=== PATIENT | female | born 1975 | race American Indian/Alaskan Native ===

== ENCOUNTER → 2025-02-19 | Outpatient (CLI) | payer OTHER, SELFPAY ==
--- NOTE | 2025-02-19 08:30 | XR_ITS ---
Examination: Breast ultrasound complete, bilateral Date and time of exam: February 19, 2025 1011 hours INDICATIONS: Palpable lumps in both breasts and axillary tail the left breast 10 years, history right breast biopsy history negative, family history breast cancer Technique: Real-time grayscale ultrasonographic imaging bilateral breasts, including all 4 quadrants as well as nipple retroareolar and axillary regions. Findings: Sonographic images right breast No cystic or solid mass Sonographic images left breast No cystic or solid mass Enlarged left axillary lymph node 5.2 x 3.0 cm IMPRESSION: BI-RADS Category 3: Probably benign findings Recommend 1 additional 6 month left breast sonogram follow-up to document stability of enlarged left axillary lymph node
--- NOTE | 2025-02-19 09:30 | XR_ITS ---
Examination: Diagnostic digital mammography, bilateral Computer aided detection 3-D breast Tomosynthesis, bilateral Date and time of exam: February 19, 2025 1024 hours Compared to mammograms dating to January 03, 2012 Technique: Nonmagnified MLO, CC views of the breasts to been obtained, reconstructed from 3-D Tomosynthesis images. R2 computer aided detection program utilized for evaluation of suspicious masses and/or abnormal calcifications. 3-D Tomosynthesis images obtained. Findings: The breasts are heterogeneously dense, which may obscure small masses The nodule with breast biopsy marker inner upper right breast appears larger compared to the mammogram December 21, 2022 Impression: BI-RADS Category 0: Incomplete: Need additional imaging evaluation Recommend follow-up spot tomographic views of the nodule with breast biopsy marker inner upper right breast.
--- NOTE | 2025-02-19 09:45 | XR_ITS ---
Examination: Thyroid sonography complete TECHNIQUE: Grayscale sonographic images thyroid lobes Date and time: February 19, 2025 1003 hours INDICATIONS: Diagnosis hypothyroidism 1995 FINDINGS: Right thyroid 5.4 cm Midpole nodule 17 x 14 mm, 7 x 6 mm calcification Left thyroid 4.6 cm Upper pole nodule 15 x 11 mm IMPRESSION: Thyroid nodules as above, consider 6 month follow-up thyroid sonography
== END | disposition home or self-care (01) ==
PROVIDERS: PCP Nurse Practitioner Family; Referring Provider Nurse Practitioner Family; Visit Provider Nurse Practitioner Family
DX: N63.12 Unspecified lump in the right breast, upper inner quadrant (principal); E04.2 Nontoxic multinodular goiter; R59.0 Localized enlarged lymph nodes
CPT/HCPCS: 76536; 76641; 77062; 77066; G0279